=== PATIENT | female | born 1995 | race Caucasian/White ===

== ENCOUNTER 2023-11-22 17:14 | Emergency (ER) | payer MEDICAID, OTHER ==
[~2023-11-22] VITALS: Ht 157.5 cm; Wt 58.1 kg
[2023-11-22 17:21] VITALS: BP 104/67; PULSE 97; RESP 16; TEMP 98.8; O2SAT 98
[2023-11-22] MEDS ORDERED: CLIN-194 MT (19:15)
== END 2023-11-22 19:20 | disposition home or self-care (01) ==
LOC: ER 17:14
DX: K08.89 Other specified disorders of teeth and supporting structures (principal); K02.9 Dental caries, unspecified; R22.0 Localized swelling, mass and lump, head
CPT/HCPCS: 99283